=== PATIENT | female | born 1995 | race Hispanic/Latino ===

== ENCOUNTER 2019-12-25 13:37 | Outpatient (CLI) | payer OTHER ==
[2019-12-25 14:35] LABS: Hematocrit 39.8 % (30.3-42.9); Hemoglobin 13.6 gm/dl (10.1-14.3); Mean Corpuscular HGB Conc 34 % (30-34); Mean Corpuscular Volume 89 fl (79-97); Platelet Count 234 K/mm3 (140-440); Red Blood Count 4.46 M/mm3 (3.65-5.03); Red Cell Distribution Width 14.3 % (13.2-15.2)
[2019-12-25 14:44] LABS: Bilirubin,Urine NEG (Negative); Blood,Urine NEG (Negative); Color,Urine Straw (Yellow); Protein,Urine <15 mg/dL mg/dL (Negative); Urobilinogen,Urine < 2.0 mg/dL (<2.0)
[2019-12-25 14:53] LABS: Bacteria,Urine 1+ /HPF (Negative); Mucus,Urine Few /HPF
[2019-12-25 14:58] LABS: Alanine Aminotransferase 9 units/L (7-56); Uric Acid 3.8 mg/dL (3.5-7.6)
[2019-12-25 15:23] VITALS: BP 126/72
== END 2019-12-25 15:45 | disposition home or self-care (01) ==
LOC: TRG 13:37
PROVIDERS: ATTEND Obstetrics & Gynecology
DX: O13.3 Gestational [pregnancy-induced] hypertension without significant proteinuria, third trimester (principal); Z3A.34 34 weeks gestation of pregnancy
CPT/HCPCS: 36415; 81001; 82565; 83615; 84450; 84460; 84550; 85027

== ENCOUNTER 2019-12-28 14:09 | Outpatient (CLI) | payer OTHER ==
[2019-12-28 15:18] VITALS: BP 131/84
== END 2019-12-28 15:19 | disposition home or self-care (01) ==
LOC: TRG 14:09
PROVIDERS: ATTEND Obstetrics & Gynecology
DX: O13.3 Gestational [pregnancy-induced] hypertension without significant proteinuria, third trimester (principal); Z3A.35 35 weeks gestation of pregnancy
CPT/HCPCS: 59025

== ENCOUNTER 2020-01-06 16:53 | Inpatient (IN) | payer OTHER ==
[2020-01-06 17:54] LABS: Bacteria,Urine 2+ /HPF (Negative); Bilirubin,Urine NEG (Negative); Blood,Urine NEG (Negative); Color,Urine Yellow (Yellow); Mucus,Urine FEW /HPF; Protein,Urine <15 mg/dL mg/dL (Negative); Urobilinogen,Urine < 2.0 mg/dL (<2.0)
[2020-01-06 18:51] LABS: Basophils % (Auto) 0.2 % (0.0-1.8); Eosinophils # (Auto) 0.1 K/mm3 (0.0-0.4); Eosinophils % (Auto) 0.6 % (0.0-4.3); Hematocrit 41.3 % (30.3-42.9); Lymphocytes # (Auto) 2.1 K/mm3 (1.2-5.4); Lymphocytes % (Auto) 18.8 % (13.4-35.0); Mean Corpuscular HGB Conc 34 % (30-34); Mean Corpuscular Volume 90 fl (79-97); Monocytes # (Auto) 0.8 K/mm3 (0.0-0.8); Platelet Count 211 K/mm3 (140-440); Red Cell Distribution Width 14.5 % (13.2-15.2)
[2020-01-06] MEDS ORDERED: FAMOTIDINE 20 MG/2 ML INJ IV SCH (19:39)
[2020-01-06] MEDS ORDERED: METOCLOPRAMIDE 10 MG/2 ML INJ IV SCH (19:39)
[2020-01-06] MEDS ORDERED: EMLA CREAM 5 GM TP PRN (19:39)
--- NOTE | 2020-01-06 19:45 | History and Physical Report ---
History of Present Illness Date of examination: 01/06/20 Chief complaint: Preeclampsia; Breech presentation History of present illness: Patient has had multiple complaints of elevated BP's at home, now with Prot,24hr calculated [H] 780 mg/24 hr on 01/05/2020. Elevated BPs here today and symptoms. US reveals Breech presentation. Will proceed with delivery by C/S Past History : 1 Term Births: 0 Premature Births: 0 Living Children: 0 Para: 0 Mult. Births: 0 Prev : 0 Prev. attempt? 0 Aborta: 0 Elect. Ab: 0 Spont. Ab: 0 Ectopics: 0 Past Medical History: PCOS Past Surgical History: negative Past Medical History Anesthesia Complications: negative Anemia: negative Autoimmune Disorder: negative Bleeding Disorder: negative Blood Transfusions: negative Breast Disease: negative Diabetes: negative Heart Disease: negative Hypertension: negative Hepatitis/Liver Disease: negative Kidney Disease/UTI: negative Neurologic/Epilepsy/Migraines: negative Phlebitis/Varicosities: negative Psychiatric: negative Pulmonary Disease/Asthma: negative Thyroid Disease: negative Hospitalizations: negative Surgery (Non-psych nurse): negative Abnormal PAP: negative LAUREEN Exposure: negative Infertility: negative Uterine Anomaly: negative Uterine Surgery (not C/S): negative Other Gynecologic Problems: negative Family Hx: pgm- breast Ca Social Hx: denies smoking/ETOH Infection History Hx of STD: HPV HIV Risk Eval: low risk Personal hx. of genital herpes: no Genetic History Congenital Heart Defect: Mom: no Dad: no Matthew Disease: Mom: no Dad: no Thalassemia Mom: no Dad: no Neural Tube Defect Mom: no Dad: no Down's Syndrome Mom: no Dad: no Jason-Sachs Mom: no Dad: no Sickle Cell Disease/Trait Mom: no Dad: no Hemophilia Mom: no Dad: no Muscular Dystrophy Mom: no Dad: no Cystic Fibrosis Mom: no Dad: no [place] Chorea Mom: no Dad: no Mental Retardation Mom: no Dad: no Fragile X Mom: no Dad: no Other Genetic/Chromosomal Disorder Mom: no Dad: no Child w/other defect Mom: no Dad: no Enviromental Exposures Xray Exposure: no Medication, drug, or alcohol use since LMP: no Chemical/Other Exposure: no Exposure to Cat Liter: no Hx of Parvovirus (Fifth Disease): no Occupational Exposure to Children: none Active Medications (reviewed today): None Current Allergies (reviewed today): No known allergies Past History - Obstetrical History Expected Date of Delivery: 01/30/20 Actual Gestation: 36 Week(s) 4 Day(s) : 1 Medications and Allergies Allergies Allergy/AdvReac Type Severity Reaction Status Date / Time No Known Allergies Allergy Verified 12/28/19 16:47 Home Medications Medication Instructions Recorded Confirmed Last Taken Type RX: No Known Home Medications [No 12/25/19 01/06/20 Unknown History Reported Home Medications] Active Meds: Active Medications Citric Acid/Sodium Citrate (Bicitra) 30 ml PO ONCE ONE Stop: 01/06/20 19:40 Famotidine (Pepcid) 20 mg IV ONCE ONE Stop: 01/06/20 19:40 Lactated Ringer's (Lactated Ringers) 1,000 mls @ 125 mls/hr IV DIRECT DEVON Oxytocin/Sodium Chloride (Pitocin/Ns 20 Unit/1000ml Drip) 20 units in 1,000 mls @ 0 mls/hr IV TITR DEVON Lactated Ringer's (Lactated Ringers) 1,000 mls @ 2,250 mls/hr IV PREOP DEVON Stop: 01/07/20 20:27 Cefazolin Sodium (Ancef/Sterile Water 2 Gm/20 Ml) 2 gm in 20 mls @ 80 mls/hr IV PREOP NR; Protocol Lidocaine/Prilocaine (Emla) 1 applic TP ONCE PRN PRN Reason: for romero catheter insertion Metoclopramide HCl (Reglan) 10 mg IV ONCE ONE Stop: 01/06/20 19:40 Review of Systems All systems: negative Eyes: other (visual changes) Neurological: headaches Psychiatric: anxiety - Vital Signs Vital signs: Vital Signs Pulse Pulse Ox 124 H 98 01/06/20 17:06 01/06/20 17:06 Temp Pulse Resp BP Pulse Ox 98.3 F 125 H 20 161/78 97 01/06/20 17:11 01/06/20 19:40 01/06/20 17:11 01/06/20 19:40 01/06/20 18:16 - Physical Exam Breasts: Positive: deferred Lungs: Positive: Normal air movement Abdomen: Positive: soft. Negative: tenderness - Obstetrical FHR: category 1 Uterine Contraction Monitor Mode: Internal Uterine Contraction Pattern: Absent Results Result Diagrams: 01/06/20 18:29 Abnormal lab results 01/06/20 Range/Units 18:29 Seg Neutrophils % 73.4 H (40.0-70.0) % Seg Neutrophils # 8.0 H (1.8-7.7) K/mm3 All other labs normal. Assessment and Plan - Patient Problems (1) 36 weeks gestation of Current Visit: Yes Status: Acute (2) Preeclampsia Current Visit: Yes Status: Acute Plan to address problem: Severe by (3) Breech presentation Current Visit: Yes Status: Acute Qualifiers: Fetus number: single or unspecified fetus Qualified Code(s): O32.1XX0 - Maternal care for breech presentation, not applicable or unspecified
[2020-01-06] MEDS ORDERED: ceFAZolin/Water 2 GM/20 ML 2 GM/20 ML SYRINGE IV NR (20:00)
[2020-01-06] MEDS ORDERED: LACTATED RINGERS 1,000 ML IV SCH ×2 (20:00→21:00)
[2020-01-06] MEDS ORDERED: OXYTOCIN 20 UNIT/1000ML DRIP 20 UNITS/1,000 ML BAG IV SCH (20:00)
[2020-01-06] MEDS ORDERED: DEXMEDETOMIDINE 200 MCG/2 ML VIAL IV ONE (20:01)
--- NOTE | 2020-01-06 20:04 | Ultrasound Report ---
Obstetrical ultrasound. HISTORY: Evaluate position. FINDINGS: A single viable intrauterine is in the breech position. Signer Name: Giles Martel MD Signed: 01/06/2020 8:00 PM Workstation Name: [id number]
[2020-01-06] MEDS ORDERED: MAGNESIUM SULFATE 4 GM/100 ML BAG IV ONE (20:17)
[2020-01-06] MEDS ORDERED: hydrALAZINE 20 MG/1 ML INJ IV PRN (20:17)
--- NOTE | 2020-01-06 20:17 | Anesthesia Consultation ---
Anesthesia Consult and Med Hx Date of service: 01/06/20 - Airway Anesthetic Teeth Evaluation: Good ROM Head & Neck: Adequate Mental/Hyoid Distance: Adequate Mallampati Class: Class II Intubation Access Assessment: Good - Pulmonary Exam CTA: Yes - Cardiac Exam Cardiac Exam: RRR - Pre-Operative Health Status ASA Pre-Surgery Classification: ASA2, Emergency Proposed Anesthetic Plan: Spinal - Pulmonary Hx Asthma: No - Cardiovascular System Hx Hypertension: Yes (Pre-E) - Central Nervous System Hx Seizures: No Hx Psychiatric Problems: No - Endocrine Hx Renal Disease: No Hx Hypothyroidism: No Hx Hyperthyroidism: No - Hematic Hx Anemia: No Hx Sickle Cell Disease: No - Other Systems Hx Alcohol Use: No
[2020-01-06] MEDS ORDERED: PROMETHAZINE 25 MG TAB PO PRN (20:18)
[2020-01-06] MEDS ORDERED: MORPHINE 4 MG/1 ML INJ IV PRN (20:18)
[2020-01-06] MEDS ORDERED: NALOXONE 0.4 MG/1 ML INJ IV PRN ×2 (20:18→23:39)
[2020-01-06] MEDS ORDERED: PROMETHAZINE 25 MG RECT SUPP PR PRN (20:18)
[2020-01-06] MEDS ORDERED: ONDANSETRON 4 MG/2 ML INJ IV PRN (20:18)
[2020-01-06] MEDS ORDERED: HYDROmorphone 1 MG/1 ML INJ IV PRN (20:18)
--- NOTE | 2020-01-06 20:18 | Anesthesia Day of Surgery ---
Anesthesia Day of Surgery - Day of Surgery Patient Examined: Yes Patient H&P Reviewed: Yes Patient is NPO: Yes
[2020-01-06] MEDS ORDERED: ONDANSETRON 4 MG/2 ML INJ ONE (20:32)
[2020-01-06] MEDS ORDERED: BICITRA ORAL LIQD 30ML PO SCH (20:39)
[2020-01-06 21:12] LABS: Alanine Aminotransferase 11 units/L (7-56)
[2020-01-06] MEDS: LACTATED RINGERS 1,000 ML IV SCH (21:51)
[2020-01-06] MEDS ORDERED: ceFAZolin/STERILE WATER 2 GM/20 ML SYRINGE IV ONE (22:39)
[2020-01-06] MEDS ORDERED: OXYTOCIN 10 UNIT/1 ML INJ ONE (23:09)
[2020-01-06] MEDS ORDERED: KETOROLAC 30 MG/1 ML INJ ONE (23:09)
[2020-01-06] MEDS ORDERED: dexAMETHasone 20 MG/5 ML VIAL ONE (23:09)
[2020-01-06] MEDS ORDERED: LANOLIN/ZINC/DIMETHICONE (LANSINOH) 7 GM TP PRN (23:39)
[2020-01-06] MEDS ORDERED: MAGNESIUM HYDROXIDE (MOM) ORAL LIQD UDC PO PRN (23:39)
[2020-01-06] MEDS ORDERED: SIMETHICONE 80 MG CHEW TAB PO PRN (23:39)
[2020-01-06] MEDS ORDERED: WITCH HAZEL/ GLYCERIN PAD TP PRN (23:39)
[2020-01-06] MEDS ORDERED: D5W/LACTATED RINGERS 1,000 ML IV SCH (23:45)
--- NOTE | 2020-01-06 23:49 | Post Anesthesia Evaluation ---
- Post Anesthesia Evaluation Patient Participated: Yes Airway Patent: Yes Stable Respiratory Function: Yes Nausea/Vomiting: No Temp > 96.8F: Yes Pain Manageable: Yes Adequeate Hydration: Yes Anesthesia Complications: No Block Receding Appropriately: Yes Patient on Ventilator: No
[2020-01-06] MEDS ORDERED: MAGNESIUM SULFATE 2 GM/50 ML BAG IV ONE (23:53)
--- NOTE | 2020-01-07 00:12 | Operative Report ---
Operative Report Operative Report: Date of operation: 01/06/2020 Pre-operative diagnosis: 1. 36 4/7 weeks gestational age 2. Preeclampsia 3. Breech presentation Post-operative diagnosis: 1. 36 4/7 weeks gestational age 2. Preeclampsia 3. Breech presentation Procedure name(s): Primary low transverse delivery Surgeon: Kalyani Marino MD Professor Of Literacy: Giana Douglas CST Anesthesia: Spinal EBL: 700 mL Urine output: 100 mL of clear urine out at the end of the procedure Fluids: 300 mL Findings: Liveborn female weight 7 Lbs. 11 oz. Apgars of 8 and 9 at one and 5 minutes Indications: Symptomatic preeclampsia with breech presentation Procedure: Patient was taking to the operating room. Spinal anesthesia was placed. Patient was then prepped and draped in the usual sterile fashion Timeout was performed. Once an appropriate level of anesthesia was noted, a Pfannenstiel incision was made and extended the fascia which was incised and extended lateral direction. The overlying fascia was sharply dissected away from the underlying rectus muscles in the superior inferior direction. The midline was entered bluntly. Bladder blade was placed. Vesicouterine fold was incised with blunt dissection bladder flap was created. A transverse incision was made in the lower uterine segment and extended superolateral direction with finger fractionation. Clear was noted. Infant was delivered from an complete breech position, loose nuchal cord x1 with spontaneous cry and excellent tone. Mouth and nose bulb suctioned. Cord was doubly clamped and cut infant was given to the resuscitation team present. Placenta was delivered. The uterus was exteriorized and cleaned of any further placental tissue and products of conception. Uterine incision was approximated using 0 Vicryl in a running interlocking stitch followed by further suture of 0 Vicryl in imbricating fashion. When hemostasis was noted the uterus was allowed back in the pelvic cavity. Pelvis was irrigated with warm normal saline. Once hemostasis was noted the rectus muscles were approximated using 0 Vicryl interrupted simple stitches 3. Once hemostasis was noted the fascia was approximated using 0 Vicryl simple running stitch. The incision was irrigated with warm saline, once hemostasis as noted, the subcuticular adipose tissue was reapproximated using 3- 0 Vicryl in a simple running fashion. Skin was approximated using 4-0 Vicryl on a Dandre needle in a subcuticular manner. Counts were correct x3. Patient tolerated the procedure well, she was taken to recovery room in stable condition.
[2020-01-07] MEDS: MAGNESIUM SULFATE 40GM/1000ML 40 GM/1,000 ML BAG IV SCH ×2 (01:53→21:51)
[2020-01-07] MEDS ORDERED: ACETAMINOPHEN 325 MG TAB PO SCH (02:00)
[2020-01-07] MEDS ORDERED: ceFAZolin/NS 1 GM/50 ML 1 GM/50 ML BAG IV SCH ×2 (04:00→06:00)
[2020-01-07] MEDS: KETOROLAC 30 MG/1 ML INJ IV SCH ×3 (04:56→18:24)
[2020-01-07] MEDS ORDERED: TETANUS,DIPH,PERTUSS(ACELL) VACCINE 0.5 ML SYRINGE IM ONE (06:00)
[2020-01-07] MEDS ORDERED: oxyCODONE /ACETAMINOPHEN 5-325MG TAB ONE ×3 (07:48→16:48)
[2020-01-07] MEDS: oxyCODONE /ACETAMINOPHEN 5-325MG TAB PO PRN ×3 (07:55→23:18)
--- NOTE | 2020-01-07 08:18 | Progress Note ---
Assessment and Plan A: 24 y.o. s/p d/t breech presentation and pre eclampsia. Now on mag post delivery. P: Continue with Magnesium at 2gm/hr per protocol. D/t be turned off at 11pm tonight. Continue with care. Continue to monitor I&Os and blood pressures. Encourage nausea and pain medication. Subjective - Subjective Date of service: 01/07/20 (Pt with some nausea and pain) Principal diagnosis: IUP @ 36 + wks, s/p d/t breech presentation, and pre e, on mag Patient reports: appetite normal, pain poorly controlled (Would like pain medication, but d/t nausea has declined. ), nauseated [place]: doing well Objective - Vital Signs Latest vital signs: Vital Signs Temp Pulse Resp BP BP Pulse Ox 01/07/20 08:09 100 H 97 01/07/20 08:04 103 H 99 01/07/20 08:00 102 H 139/94 01/07/20 07:59 103 H 98 01/07/20 07:54 97 H 97 01/07/20 07:49 101 H 98 01/07/20 07:44 101 H 97 01/07/20 07:39 99 H 97 01/07/20 07:34 100 H 99 01/07/20 07:30 96 H 113/75 01/07/20 07:29 94 H 96 01/07/20 07:24 93 H 95 01/07/20 07:19 100 H 97 01/07/20 07:14 92 H 95 01/07/20 07:09 99 H 97 01/07/20 07:04 102 H 96 01/07/20 07:00 90 125/78 01/07/20 06:59 91 H 97 01/07/20 06:54 95 H 97 01/07/20 06:49 94 H 96 01/07/20 06:44 94 H 96 01/07/20 06:39 99 H 97 01/07/20 06:34 98 H 96 01/07/20 06:30 95 H 128/76 01/07/20 06:29 98 H 98 01/07/20 06:28 94 H 94 01/07/20 06:24 93 H 98 01/07/20 06:19 93 H 96 01/07/20 06:17 95 H 94 01/07/20 06:14 94 H 96 01/07/20 06:09 96 H 95 01/07/20 06:08 94 H 94 01/07/20 06:04 95 H 96 01/07/20 06:00 96 H 112/68 01/07/20 05:59 98 H 95 01/07/20 05:54 95 H 95 01/07/20 05:49 96 H 95 01/07/20 05:44 95 H 96 01/07/20 05:39 95 H 95 01/07/20 05:38 93 H 94 01/07/20 05:34 115 H 98 01/07/20 05:30 91 H 112/62 01/07/20 05:29 93 H 94 01/07/20 05:27 94 H 93 01/07/20 05:24 96 H 94 01/07/20 05:22 95 H 94 01/07/20 05:19 91 H 94 01/07/20 05:17 94 H 94 01/07/20 05:14 96 H 96 01/07/20 05:12 96 H 94 01/07/20 05:09 93 H 95 01/07/20 05:06 92 H 94 01/07/20 05:04 104 H 95 01/07/20 05:00 91 H 119/70 94 01/07/20 04:56 17 01/07/20 04:54 102 H 97 01/07/20 04:52 99 H 94 01/07/20 04:50 97 H 94 01/07/20 04:46 102 H 94 01/07/20 04:44 98 H 97 01/07/20 04:40 101 H 98 01/07/20 04:34 111 H 95 01/07/20 04:30 100 H 108/56 94 01/07/20 04:28 97 H 94 01/07/20 04:24 104 H 95 01/07/20 04:23 103 H 94 01/07/20 04:20 98 H 97 01/07/20 04:16 95 H 94 01/07/20 04:15 99 H 94 01/07/20 04:11 97 H 94 01/07/20 04:10 96 H 94 01/07/20 04:04 102 H 94 01/07/20 04:00 93 H 107/59 96 01/07/20 03:59 95 H 94 02/12/20 03:55 102 H 96 01/07/20 03:50 95 H 96 01/07/20 03:45 104 H 97 01/07/20 03:40 102 H 96 01/07/20 03:35 103 H 97 01/07/20 03:30 100 H 108/56 97 01/07/20 03:25 97 H 97 01/07/20 03:20 112 H 97 01/07/20 03:15 107 H 97 01/07/20 03:10 111 H 97 01/07/20 03:04 107 H 97 01/07/20 03:00 104 H 114/57 98 01/07/20 02:55 109 H 97 01/07/20 02:50 117 H 96 01/07/20 02:45 109 H 97 01/07/20 02:40 107 H 97 01/07/20 02:35 116 H 98 01/07/20 02:30 102 H 121/66 96 01/07/20 02:25 106 H 97 01/07/20 02:20 113 H 98 01/07/20 02:15 113 H 97 01/07/20 02:10 113 H 98 01/07/20 02:05 109 H 98 01/07/20 02:00 103 H 114/68 97 01/07/20 01:55 103 H 100/57 98 01/07/20 01:53 97 H 106/55 01/07/20 01:50 97 H 98 01/07/20 01:48 100 H 104/58 01/07/20 01:45 105 H 98 01/07/20 01:43 103 H 105/56 01/07/20 01:40 108 H 98 01/07/20 01:38 98 H 105/57 01/07/20 01:35 129 H 98 01/07/20 01:33 108 H 107/61 01/07/20 01:30 117 H 99 01/07/20 01:28 101 H 112/64 01/07/20 01:25 89 99 01/07/20 01:24 88 113/60 01/07/20 01:21 102 H 106/59 01/07/20 01:06 98.1 F 85 18 121/61 01/07/20 00:45 84 18 113/67 96 01/07/20 00:40 97.8 F 90 19 109/64 96 01/07/20 00:25 86 15 111/57 97 01/07/20 00:10 90 16 106/51 97 01/06/20 23:55 99 H 17 87/44 96 01/06/20 23:50 92 H 13 91/58 96 01/06/20 23:47 97.5 F L 96 H 15 96/34 96 01/06/20 22:02 115 H 130/90 01/06/20 21:38 101 H 98 01/06/20 21:33 103 H 97 01/06/20 21:30 104 H 94 01/06/20 21:28 100 H 96 01/06/20 21:26 100 H 103/55 01/06/20 21:23 99 H 97 01/06/20 21:20 101 H 94 01/06/20 21:18 104 H 96 01/06/20 21:14 99 H 93 01/06/20 21:13 100 H 95 01/06/20 21:08 101 H 95 01/06/20 21:07 101 H 94 01/06/20 21:03 101 H 95 01/06/20 21:02 105 H 94 01/06/20 21:00 101 H 105/54 01/06/20 20:58 100 H 95 01/06/20 20:55 98 H 94 01/06/20 20:53 102 H 95 01/06/20 20:49 107 H 94 01/06/20 20:48 104 H 95 01/06/20 20:43 110 H 95 01/06/20 20:42 106 H 94 01/06/20 20:38 103 H 96 01/06/20 20:34 105 H 94 01/06/20 20:33 102 H 96 01/06/20 20:31 111 H 107/53 01/06/20 20:30 98.5 F 20 01/06/20 20:28 120 H 97 01/06/20 19:59 137 H 161/97 01/06/20 19:44 127 H 162/89 01/06/20 19:40 125 H 161/78 01/06/20 19:38 126 H 175/104 01/06/20 18:16 121 H 97 01/06/20 18:14 121 H 133/87 01/06/20 18:11 118 H 98 01/06/20 18:06 119 H 97 01/06/20 18:01 114 H 97 01/06/20 18:00 120 H 128/89 01/06/20 17:56 110 H 97 01/06/20 17:51 119 H 97 01/06/20 17:46 114 H 97 01/06/20 17:44 115 H 136/92 01/06/20 17:41 116 H 97 01/06/20 17:36 107 H 97 01/06/20 17:31 107 H 97 01/06/20 17:26 119 H 97 01/06/20 17:21 116 H 97 01/06/20 17:16 110 H 97 01/06/20 17:11 98.3 F 117 H 20 142/100 97 01/06/20 17:08 114 H 142/100 01/06/20 17:06 124 H 98 Intake and Output 01/06/20 01/07/20 01/07/20 22:59 06:59 14:59 Intake Total 1100 950 Output Total 600 Balance 1100 350 Intake: IV 1100 950 Lactated Ringers 1,000 ml 200 @ 125 mls/hr IV DIRECT DEVON Rx#:[id number] Lactated Ringers 1,000 ml 1000 @ 2250 mls/hr IV PREOP DEVON Rx#:[id number] MAGNESIUM SULFATE 2GM/ 50 50ML 2 gm In 50 ml @ 25 mls/hr IV ONCE ONE Rx#: [id number] Output: Urine 600 Indwelling Catheter 450 Uretheral (Hill) 50 Other: Total, Output Amount 100 Weight 205 lb Estimated Blood Loss 700 - Exam Breasts: Present: deferred Cardiovascular: Present: Regular rate Lungs: Present: Clear to auscultation Abdomen: Present: normal appearance, soft Vulva: both: normal Uterus: Present: normal, firm Extremities: Present: normal Deep Tendon Reflex Grade: Normal +2 (No clonus present.) Incision: Present: normal, dry, intact (Incision open to air, intact with no drainage noted. No s/sx of infection. ) Comments: VSS, blood pressures WNL. Adequate I&Os. - Labs Labs: Abnormal lab results 01/06/20 01/07/20 Range/Units 18:29 05:30 Seg Neutrophils % 73.4 H (40.0-70.0) % Seg Neutrophils # 8.0 H (1.8-7.7) K/mm3 Magnesium 4.70 H (1.7-2.3) mg/dL
[2020-01-07 13:38] LABS: Hematocrit 40.3 % (30.3-42.9); Hemoglobin 13.2 gm/dl (10.1-14.3)
[2020-01-07] MEDS: LACTATED RINGERS 1,000 ML IV SCH (21:51)
[2020-01-07] MEDS ORDERED: KETOROLAC 30 MG/1 ML INJ IV PRN (23:39)
--- NOTE | 2020-01-08 06:09 | Progress Note ---
Assessment and Plan Pt encouraged to be OOB for meals and to shower. Pt instructed to use IS and wear abdominal binder - Patient Problems (1) delivery delivered Onset Date: ~01/06/20 Current Visit: Yes Status: Acute Plan to address problem: Pt A&O X 3 in bed caring for NB. Incision D&I H&H stable No s/sx of anemia Doing well s/p section; PreE P: continue pathway Advance diet and activity as tolerated. (2) Preeclampsia Onset Date: ~01/08/20 Current Visit: Yes Status: Acute Qualifiers: Trimester: third trimester Qualified Code(s): O14.93 - Unspecified pre- eclampsia, third trimester Plan to address problem: Completed MGSO4 Transferred to M/B BP 120-110/70-60 Denies RAMOS, blurred vision, chest pain Subjective - Subjective Date of service: 01/08/20 (pt in good spirits; "I'm in pain but the medications works well.") Principal diagnosis: Day # 2 s/p section; pre-e Patient reports: appetite normal, voiding normally, pain well controlled, ambulating normally (with assistance) [place]: doing well Objective - Vital Signs Latest vital signs: Vital Signs Temp Pulse Resp BP BP Pulse Ox 01/08/20 01:27 97.7 F 101 H 20 120/80 96 01/08/20 00:07 98.4 F 01/07/20 23:20 110 H 98 01/07/20 23:18 18 01/07/20 23:15 105 H 96 01/07/20 23:10 111 H 98 01/07/20 23:05 115 H 97 01/07/20 23:00 108 H 121/76 97 01/07/20 22:55 105 H 97 01/07/20 22:50 108 H 97 01/07/20 22:45 110 H 95 01/07/20 22:44 108 H 94 01/07/20 22:40 105 H 96 01/07/20 22:35 107 H 97 01/07/20 22:30 110 H 98 01/07/20 22:25 109 H 96 01/07/20 22:20 105 H 96 01/07/20 22:15 105 H 96 01/07/20 22:10 109 H 97 01/07/20 22:05 118 H 97 01/07/20 22:00 103 H 123/72 97 01/07/20 21:55 104 H 98 01/07/20 21:50 103 H 96 01/07/20 21:45 108 H 97 01/07/20 21:40 108 H 99 01/07/20 21:35 106 H 98 01/07/20 21:30 107 H 109/64 98 01/07/20 21:25 107 H 98 01/07/20 21:20 107 H 98 01/07/20 21:15 109 H 97 01/07/20 21:10 109 H 98 01/07/20 21:05 110 H 97 01/07/20 21:00 105 H 110/55 97 02 20:55 109 H 98 01/07/20 20:50 110 H 97 01/07/20 20:45 108 H 98 01/07/20 20:40 109 H 96 01/07/20 20:35 111 H 96 01/07/20 20:30 111 H 116/59 97 01/07/20 20:25 113 H 100 01/07/20 20:20 113 H 98 01/07/20 20:17 112 H 115/66 01/07/20 20:15 113 H 97 01/07/20 20:13 97.9 F 111 H 18 115/66 98 01/07/20 20:09 113 H 98 01/07/20 20:04 111 H 99 01/07/20 20:00 111 H 114/63 01/07/20 19:59 114 H 99 01/07/20 19:54 122 H 97 01/07/20 19:49 117 H 99 01/07/20 19:44 111 H 97 01/07/20 19:39 114 H 99 01/07/20 19:34 118 H 99 01/07/20 19:30 111 H 116/68 01/07/20 19:29 114 H 100 01/07/20 19:24 114 H 99 01/07/20 19:19 111 H 99 01/07/20 19:14 112 H 99 01/07/20 19:09 118 H 99 01/07/20 19:04 109 H 99 01/07/20 19:00 105 H 110/63 01/07/20 18:59 108 H 100 01/07/20 18:54 108 H 100 02/12/20 18:49 107 H 99 0220 18:44 104 H 99 0220 18:39 99 H 99 0220 18:34 102 H 99 0220 18:33 98.2 F 14 98 0220 18:30 99 H 110/68 02 18:29 99 H 100 0220 18:24 107 H 99 02 18:23 106 H 83 L 02 18:19 107 H 99 0220 18:14 109 H 99 0220 18:09 114 H 100 0220 18:04 109 H 99 02 18:00 106 H 108/58 02 17:59 108 H 98 02 17:54 103 H 97 02 17:49 106 H 97 01/07/20 17:44 105 H 98 02 17:39 103 H 97 02 17:34 103 H 97 02 17:30 104 H 111/64 01/07/20 17:29 105 H 97 01/07/20 17:24 105 H 98 0220 17:19 108 H 97 01/07/20 17:14 98 H 97 02 17:09 104 H 97 02 17:04 103 H 97 01/07/20 16:59 104 H 97 01/07/20 16:54 111 H 98 0220 16:49 107 H 98 0220 16:44 113 H 97 20 16:39 112 H 98 0220 16:34 114 H 97 0220 16:29 111 H 98 0220 16:24 111 H 99 021220 16:19 112 H 98 0220 16:14 109 H 98 0220 16:09 105 H 99 0220 16:04 102 H 99 0220 16:00 107 H 127/70 0220 15:59 103 H 99 0220 15:54 107 H 98 0220 15:49 104 H 98 0220 15:44 105 H 99 02/12/20 15:39 109 H 100 01/07/20 15:34 104 H 100 01/07/20 15:30 103 H 111/67 01/07/20 15:29 103 H 98 01/07/20 15:26 98.2 F 02 15:24 107 H 98 01/07/20 15:19 110 H 98 01/07/20 15:14 101 H 98 01/07/20 15:09 103 H 97 01/07/20 15:04 104 H 97 01/07/20 15:00 100 H 122/61 01/07/20 14:59 101 H 98 01/07/20 14:54 104 H 96 01/07/20 14:49 110 H 97 01/07/20 14:44 107 H 97 01/07/20 14:39 111 H 96 01/07/20 14:34 112 H 97 01/07/20 14:31 117 H 101/63 01/07/20 14:29 114 H 97 01/07/20 14:24 114 H 98 01/07/20 14:19 110 H 99 01/07/20 14:14 104 H 98 01/07/20 14:09 106 H 99 01/07/20 14:04 104 H 97 01/07/20 14:00 102 H 122/69 01/07/20 13:59 101 H 98 01/07/20 13:54 109 H 97 01/07/20 13:49 105 H 97 01/07/20 13:44 100 H 98 01/07/20 13:40 100 H 122/72 01/07/20 13:39 104 H 97 01/07/20 13:34 108 H 97 01/07/20 13:29 108 H 97 01/07/20 13:24 108 H 97 01/07/20 13:19 106 H 98 01/07/20 13:14 114 H 98 01/07/20 13:09 110 H 98 01/07/20 13:04 114 H 99 01/07/20 12:59 134 H 100 01/07/20 12:54 109 H 99 01/07/20 12:49 106 H 98 01/07/20 12:44 96 H 99 01/07/20 12:39 106 H 98 01/07/20 12:34 104 H 98 01/07/20 12:30 101 H 119/73 02/20 12:29 103 H 97 01/07/20 12:24 101 H 98 01/07/20 12:19 102 H 97 01/07/20 12:14 104 H 98 01/07/20 12:09 100 H 98 01/07/20 12:06 100 H 94 01/07/20 12:04 105 H 96 01/07/20 12:00 106 H 132/61 01/07/20 11:59 103 H 95 01/07/20 11:56 103 H 94 01/07/20 11:54 102 H 94 01/07/20 11:49 101 H 96 01/07/20 11:48 97 H 94 01/07/20 11:44 101 H 98 01/07/20 11:39 102 H 98 01/07/20 11:34 105 H 98 01/07/20 11:30 109 H 127/62 01/07/20 11:29 106 H 96 01/07/20 11:24 107 H 96 01/07/20 11:19 110 H 96 01/07/20 11:14 111 H 97 01/07/20 11:09 111 H 97 01/07/20 11:04 108 H 99 01/07/20 11:00 102 H 121/78 01/07/20 10:59 105 H 96 01/07/20 10:54 97 H 99 01/07/20 10:49 97 H 98 01/07/20 10:44 110 H 98 01/07/20 10:39 109 H 98 01/07/20 10:34 104 H 98 01/07/20 10:30 109 H 132/82 01/07/20 10:29 108 H 96 01/07/20 10:24 100 H 98 01/07/20 10:19 101 H 98 01/07/20 10:14 109 H 97 01/07/20 10:09 105 H 97 01/07/20 10:05 105 H 94 01/07/20 10:04 104 H 96 01/07/20 10:00 105 H 118/72 01/07/20 09:59 103 H 97 01/07/20 09:54 103 H 96 01/07/20 09:49 107 H 97 01/07/20 09:44 109 H 98 01/07/20 09:41 107 H 93 01/07/20 09:39 112 H 98 01/07/20 09:34 115 H 99 01/07/20 09:30 104 H 120/74 01/07/20 09:29 112 H 95 01/07/20 09:24 108 H 98 01/07/20 09:19 116 H 96 01/07/20 09:14 114 H 98 01/07/20 09:09 116 H 96 01/07/20 09:04 114 H 97 01/07/20 09:00 114 H 124/79 01/07/20 08:59 109 H 96 01/07/20 08:54 116 H 96 01/07/20 08:49 113 H 98 01/07/20 08:44 102 H 98 01/07/20 08:39 100 H 97 01/07/20 08:34 100 H 97 01/07/20 08:30 97 H 129/82 01/07/20 08:29 97 H 98 01/07/20 08:24 97 H 97 01/07/20 08:19 94 H 98 01/07/20 08:14 96 H 98 01/07/20 08:09 100 H 97 01/07/20 08:04 103 H 99 01/07/20 08:00 102 H 139/94 01/07/20 07:59 103 H 98 01/07/20 07:54 97 H 97 01/07/20 07:49 101 H 98 01/07/20 07:44 101 H 97 01/07/20 07:39 99 H 97 01/07/20 07:34 100 H 99 01/07/20 07:30 96 H 113/75 01/07/20 07:29 94 H 96 01/07/20 07:24 93 H 95 01/07/20 07:19 100 H 97 01/07/20 07:14 92 H 95 01/07/20 07:09 99 H 97 01/07/20 07:04 102 H 96 01/07/20 07:00 90 125/78 01/07/20 06:59 91 H 97 01/07/20 06:54 95 H 97 01/07/20 06:49 94 H 96 01/07/20 06:44 94 H 96 01/07/20 06:39 99 H 97 01/07/20 06:34 98 H 96 02/12/20 06:30 95 H 128/76 02/12/20 06:29 98 H 98 01/07/20 06:28 94 H 94 01/07/20 06:24 93 H 98 01/07/20 06:19 93 H 96 01/07/20 06:17 95 H 94 01/07/20 06:14 94 H 96 01/07/20 06:09 96 H 95 01/07/20 06:08 94 H 94 01/07/20 06:04 95 H 96 Intake and Output 01/07/20 01/07/20 01/08/20 14:59 22:59 06:59 Intake Total 1508.333 160.417 Output Total 1500 1550 400 Balance -1500 -41.667 -239.583 Intake: IV 1008.333 160.417 Lactated Ringers 1,000 ml 96.25 @ 125 mls/hr IV DIRECT DEVON Rx#:[id number] MAGNESIUM SULFATE 40GM/ 998.333 64.167 1000ML 40 gm In 1,000 ml @ 2 GM/HR 50 mls/hr IV DIRECT DEVON Rx#:[id number] Right Hand 10 Oral 500 Output: Urine 1500 1550 400 Indwelling Catheter 1500 1550 400 Other: Total, Intake Amount 500 Total, Output Amount 1500 300 400 - Exam Breasts: Present: normal Cardiovascular: Present: Regular rate Lungs: Present: Clear to auscultation Abdomen: Present: normal appearance, soft, normal bowel sounds Vulva: both: normal Uterus: Present: normal, fundal height below umbilicus Extremities: Present: normal Deep Tendon Reflex Grade: Normal +2 Incision: Present: normal, dry, intact - Labs Labs: Abnormal lab results 01/07/20 01/07/20 01/07/20 Range/Units 05:30 13:07 16:31 Magnesium 4.70 H 6.10 H 5.90 H (1.7-2.3) mg/dL 01/07/20 Range/Units 22:28 Magnesium 5.90 H (1.7-2.3) mg/dL
[2020-01-08] MEDS: IBUPROFEN 800 MG TAB PO SCH ×2 (07:45→17:29)
[2020-01-08] MEDS: oxyCODONE /ACETAMINOPHEN 5-325MG TAB PO PRN ×2 (09:08→19:34)
[2020-01-09] MEDS: oxyCODONE /ACETAMINOPHEN 5-325MG TAB PO PRN ×3 (00:34→13:47)
--- NOTE | 2020-01-09 07:24 | Discharge Summary ---
Providers - Providers Date of Admission: 01/06/20 21:54 Date of discharge: 01/09/20 (Pt desires to go home) Attending physician: TEREZA GARCIA 01/06/20 23:39 Consult to Outboard Technician [CONS] Routine Reason For Exam: Primary care physician: TEREZA GARCIA Hospitalization Reason for admission: section Delivery: Procedure: section Episiotomy: none Laceration: none Incision: normal, dry, intact (No s/sx of infection. No drainaged noted.) Other procedures: none complications: none Discharge diagnosis: IUP at term delivered [place] baby: female Hospital course: S: Pt doing well. Desires to go home. Passing flatus, ambulating, and voiding without difficulty. BC: Undecided. Pain well controlled. O: VSS, H/H 13.2/40.3. Adquate I&O's. Incision open to air, intact, no s/sx of infection. No drainage noted. A: 24 y.o. @ 36 + wks d/t pre e and breech presentation. Stable to go home. P: Discharge home with instructions. Schedule BP and incision check in 1 week with the office. Condition at discharge: Good Disposition: DC-01 TO HOME OR SELFCARE Plan - Discharge Medications Prescriptions: Ibuprofen [Motrin 800 MG tab] 800 mg PO TID PRN #30 tablet PRN Reason: Pain oxyCODONE /ACETAMINOPHEN [Percocet 5/325 mg] 1 - 2 tab PO Q8HR PRN #14 tablet PRN Reason: Pain - Provider Discharge Summary Activity: routine, no sex for 6 weeks, no heavy lifting 4 weeks, no strenuous exercise Diet: routine Instructions: routine Additional instructions: [] Smoking cessation referral if applicable(refer to patient education folder for contact #) [] Refer to [facility] Booklet Call your doctor immediately for: * Fever > 100.5 * Heavy vaginal bleeding ( >1 pad per hour) * Severe persistent headache * Shortness of breath * Reddened, hot, painful area to leg or breast * Drainage or odor from incision. * Keep incision clean and dry at all times and follow doctor's instructions regarding bathing/showering - Follow up plan Follow up: TEREZA GARCIA MD [Primary Care Provider] - 7 Days (Congratulations!!! Please schedule for a blood pressure and incision check in 1 week. Take all medciations as prescribed. Please schedule visit in 1 week. ) Forms: [facility] Discharge Summary
[2020-01-09 14:44] VITALS: BP 125/86
== END 2020-01-09 15:25 | disposition home or self-care (01) | DRG 766 ==
LOC: TRG 16:53 → APU 21:54 → LD 01-07 01:20 → OB 01-08 00:19
PROVIDERS: ADMIT Obstetrics & Gynecology; ATTEND Obstetrics & Gynecology
PROC: 10D00Z1 Extraction of Products of Conception, Low, Open Approach (ICD-10-PCS; principal; 2020-01-06)
PROC: 3E0234Z Introduction of Serum, Toxoid and Vaccine into Muscle, Percutaneous Approach (ICD-10-PCS; 2020-01-07)
DX: O32.1XX0 Maternal care for breech presentation, not applicable or unspecified (principal); Z3A.36 36 weeks gestation of pregnancy; Z37.0 Single live birth; Z23 Encounter for immunization; Z80.3 Family history of malignant neoplasm of breast; O14.14 Severe pre-eclampsia complicating childbirth
CPT/HCPCS: 36415; 76815; 81001; 82565; 83615; 83735; 84450; 84460; 85014; 85018; 85025; 86850; 86900; 86901; G0378; J0690; J1100; J1170; J1885; J2270; J2405; J2590; J2765; J3475; J3490; J7120